=== PATIENT | female | born 1945 | race Caucasian/White ===

== ENCOUNTER 2018-06-30 03:10 | Inpatient (IN) | payer MEDICARE, BC ==
[~2018-06-30] VITALS: Ht 172.7 cm; Wt 61.3 kg
[~2018-06-30 03:10] MED LIST: DULO-31 PO; HYDR-3965 PO
[2018-06-30] MEDS ORDERED: proCHLORperazine 10 MG/2 ml inj IV ONE (04:05)
[2018-06-30 04:27] LABS: BASOPHILS % (AUTO) 0.6 % (0-1); EOSINOPHILS % (AUTO) 0.2 % (0-6); HEMATOCRIT 43.7 % (35.0-45.0); HEMOGLOBIN 14.2 g/dl (12.0-16.0); LYMPHOCYTES # (AUTO) 0.7 X10'3 (1.1-4.8); LYMPHOCYTES % (AUTO) 10.6 % (21-51); MEAN CORPUSCULAR HGB CONC 32.6 g/dL (33.0-36.5); MEAN CORPUSCULAR VOLUME 85.8 FL (78-98); MEAN PLATELET VOLUME 8.4 FL (7.4-10.4); MONOCYTES # (AUTO) 0.3 X10'3 (0-0.9); MONOCYTES % (AUTO) 4.8 % (2-12); NEUTROPHILS # (AUTO) 5.3 X10'3 (1.8-7.7); NEUTROPHILS % (AUTO) 83.8 % (42-75); PLATELET COUNT 199 X10'3 (140-440); RED BLOOD COUNT 5.09 X10'6 (4.20-5.60); RED CELL DISTRIBUTION WIDTH 14.9 % (11.5-14.5); WHITE BLOOD COUNT 6.3 X10'3 (4.5-11.0)
[2018-06-30 04:28] LABS: ALANINE AMINOTRANSFERASE 18 U/L (12-78); ALBUMIN 3.5 G/DL (3.4-5.0); ALBUMIN/GLOBULIN RATIO 0.9 (1.1-1.5); ALKALINE PHOSPHATASE 114 IU/L (46-116); ANION GAP 9 (8-16); ASPARTATE AMINO TRANSFERASE 19 U/L (10-37); BILIRUBIN,TOTAL 0.8 MG/DL (0.1-1.0); BLOOD UREA NITROGEN 20 MG/DL (7-18); BUN/CREATININE RATIO 30.3 (6.6-38.0); CHLORIDE 107 MMOL/L (99-107); CREATININE 0.66 MG/DL (0.40-0.90); GLUCOSE 96 MG/DL (70-104); POTASSIUM 3.9 MMOL/L (3.5-5.1); SODIUM 141 MMOL/L (135-145); TOTAL CARBON DIOXIDE 25.4 MMOL/L (24-32); TOTAL PROTEIN 7.3 G/DL (6.4-8.2); eGFR 89 ML/MIN
[2018-06-30 04:32] LABS: D-DIMER 0.96 MG/L FEU (0-0.50); PARTIAL THROMBOPLASTIN TIME 42 SECONDS (22-32)
[2018-06-30] MEDS ORDERED: iohexol 350MG/ML 100ml bottle IV ONE (05:33)
--- NOTE | 2018-06-30 05:40 | NUR ---
CT chest with contrast ordered d/t elevated ddimer. remains at bedside
[2018-06-30] MEDS ORDERED: [UNRECOGNIZED DRUG - CODE] (06:12)
[2018-06-30] MEDS ORDERED: HYDROcodone/acetaminophen 5mg/325mg tablet PO ONE (06:15)
--- NOTE | 2018-06-30 06:19 | NUR ---
PT AWAITING HOSPITALIST. MED REC COMOPLETED. VSS, SATS ON 2 l NC95%. , DARYN, REMAINS AT BEDSIDE. PT IS POLITE AND COOPERATIVE AND APPROPRIATE AND A&OX4.
[2018-06-30] MEDS ORDERED: furosemide 10 MG/1 ML 10ml inj IV ONE (06:55)
[2018-06-30] MEDS ORDERED: potassium Cl 40MEQ/NS 500ml 500 ML IV PRN ×2 (07:30)
[2018-06-30] MEDS ORDERED: acetaminophen 325mg tablet PO PRN (07:30)
[2018-06-30] MEDS ORDERED: potassium Cl 20 mEq SR tablet PO PRN ×2 (07:30)
[2018-06-30] MEDS ORDERED: ipratropium/albuterol 3ml nebule NEB PRN (07:30)
[2018-06-30] MEDS ORDERED: magnesium 2GM in 50ml NS 50 ML IV PRN (07:30)
[2018-06-30] MEDS ORDERED: magnesium Cl slow-release 64mg tablet PO PRN (07:30)
[2018-06-30] MEDS ORDERED: magnesium 4gm in 100ml NS 100 ML IV PRN (07:30)
[2018-06-30] MEDS ORDERED: ondansetron/PF 4mg/2ml inj IV PRN (07:30)
[2018-06-30] MEDS: K and/or MAG REPLACEMENT MC SCH (08:00)
[2018-06-30] MEDS: enoxaparin 40mg/0.4ml syringe SUBCUT SCH (08:23)
--- NOTE | 2018-06-30 08:41 | NUR ---
RECEIVED REPORT FROM SHERLY SCHULTZ. AWAITING PATIENT TO ROOM 355A.
--- NOTE | 2018-06-30 09:30 | NUR ---
RECEIVED PATIENT TO ROOM 355A VIA GURNEY ACCOMPANIED BY X1 STAFF AND SPOUSE. PATIENT IS ALERT AND ORIENTED AN IN NO APPARENT DISTRESS. SHE DENIES SOB AT THIS TIME AND EVEN WITH EXERTION. SHE WAS ABLE TO AMBULATE WITH X1 SBA TO BATHROOM AND TO BED. PATIENT ORIENTED TO ROOM AND CALL LIGHT AND CALL LIGHT PLACED WITHIN REACH. BED IS LOW AND LOCKED.
[2018-06-30 09:55] VITALS: BP 160/76
[2018-06-30 10:01] VITALS: BP 145/83
[2018-06-30 11:00] VITALS: BP 131/76
[2018-06-30] MEDS ORDERED: HYDROcodone/acetaminophen 5mg/325mg tablet PO PRN (12:10)
--- NOTE | 2018-06-30 17:33 | NUR ---
CANE FLUME CHUTE OPERATOR AT PATIENT'S BEDSIDE.
--- NOTE | 2018-06-30 18:12 | NUR ---
Patient in room [facility]. I have received report from Amie DUBOIS and had the opportunity to ask questions and assume patient care. Addendum: 06/30/18 at 1812 by Irene Graf RN Amended: Links added.
--- NOTE | 2018-06-30 18:19 | NUR ---
Problems reprioritized. Patient report given, questions answered & plan of care reviewed with SHERLY URBINA.
[2018-06-30] MEDS: HYDROcodone/acetaminophen 5mg/325mg tablet PO PRN (19:17)
--- NOTE | 2018-06-30 19:20 | NUR ---
medicated for c/o pain .
[2018-06-30 19:30] VITALS: BP 128/75
--- NOTE | 2018-06-30 20:10 | NUR ---
hs med given no s&s of distress has a heart murmur on tele 15.
[2018-06-30] MEDS: famotidine 20mg tablet PO SCH (20:16)
--- NOTE | 2018-06-30 22:00 | NUR ---
pt resting eyes closed without changes.
--- NOTE | 2018-07-01 | NUR ---
resting eyes closed no s&s of distress.
[2018-07-01 00:10] VITALS: BP 123/83
--- NOTE | 2018-07-01 02:00 | NUR ---
pt resting without changes.
--- NOTE | 2018-07-01 04:00 | NUR ---
pt resting without changes.
[2018-07-01] MEDS: HYDROcodone/acetaminophen 5mg/325mg tablet PO PRN ×4 (06:12→20:48)
--- NOTE | 2018-07-01 06:16 | NUR ---
Problems reprioritized. Patient report given, questions answered & plan of care reviewed with Roselyn Frazier. Addendum: 07/01/18 at 0616 by Irene Graf RN Amended: Links added.
[2018-07-01 06:37] LABS: BASOPHILS % (AUTO) 0.5 % (0-1); HEMATOCRIT 44.3 % (35.0-45.0); HEMOGLOBIN 14.3 g/dl (12.0-16.0); LYMPHOCYTES # (AUTO) 1.4 X10'3 (1.1-4.8); LYMPHOCYTES % (AUTO) 29.9 % (21-51); MEAN CORPUSCULAR HGB CONC 32.3 g/dL (33.0-36.5); MEAN CORPUSCULAR VOLUME 86.7 FL (78-98); MEAN PLATELET VOLUME 8.8 FL (7.4-10.4); MONOCYTES # (AUTO) 0.4 X10'3 (0-0.9); MONOCYTES % (AUTO) 8.5 % (2-12); NEUTROPHILS # (AUTO) 2.8 X10'3 (1.8-7.7); NEUTROPHILS % (AUTO) 60.1 % (42-75); PLATELET COUNT 210 X10'3 (140-440); RED BLOOD COUNT 5.11 X10'6 (4.20-5.60); RED CELL DISTRIBUTION WIDTH 14.4 % (11.5-14.5); WHITE BLOOD COUNT 4.6 X10'3 (4.5-11.0)
[2018-07-01 06:50] LABS: ANION GAP 9 (8-16); BLOOD UREA NITROGEN 16 MG/DL (7-18); BUN/CREATININE RATIO 23.9 (6.6-38.0); CHLORIDE 104 MMOL/L (99-107); CREATININE 0.67 MG/DL (0.40-0.90); GLUCOSE 91 MG/DL (70-104); POTASSIUM 3.7 MMOL/L (3.5-5.1); SODIUM 141 MMOL/L (135-145); TOTAL CARBON DIOXIDE 28.4 MMOL/L (24-32)
[2018-07-01 06:51] LABS: ALBUMIN 3.7 G/DL (3.4-5.0); CALCIUM 9.8 MG/DL (8.5-10.1); CHOL/HDL RATIO 1.8 (0.00-4.99); CHOLESTEROL 170 MG/DL (0-200); HDL CHOLESTEROL 93 MG/DL (35-60); LDL CHOLESTEROL 67 MG/DL (50-100); MAGNESIUM 2.1 MG/DL (1.5-2.4); TRIGLYCERIDES 71 MG/DL (20-135); eGFR 87 ML/MIN
[2018-07-01 07:30] VITALS: BP 144/81
[2018-07-01] MEDS: furosemide 20 MG/2 ML vial IV SCH (07:33)
[2018-07-01] MEDS: enoxaparin 40mg/0.4ml syringe SUBCUT SCH (07:34)
[2018-07-01] MEDS: K and/or MAG REPLACEMENT MC SCH (08:00)
--- NOTE | 2018-07-01 09:35 | NUR ---
Patient in room [facility]. I have received report from Shartia DUBOIS and had the opportunity to ask questions and assume patient care.
--- NOTE | 2018-07-01 09:44 | NUR ---
Gave report to Johnathan DUBOIS pt is resting on RA, in no apparent distress, call light and items of freq use within reach.
[2018-07-01 11:00] VITALS: BP 128/84
--- NOTE | 2018-07-01 14:06 | NUR ---
Paged Dr. Oneill PAGER ID: [phone] MESSAGE: Johnathan DUBOIS [phone] Zena Zacarias: 24hr tele order . Do you want to d/c or continue? Pt sinus to sinus tach (90s-100s) at rest. Thank you.
[2018-07-01 18:00] VITALS: BP 134/88
--- NOTE | 2018-07-01 18:40 | NUR ---
Paged Dr. Oneill PAGER ID: [phone] MESSAGE: Johnathan DUBOIS [phone] Zena Zacarias: ordered Stat EKG per protocol. HR 120s-130s, change from 90s-100s all day. Pt diaphoretic. No chest pain. No SOB. O2 93% RA. Regular rhythm apical auscultation. Concerned about change with new onset CHF.
--- NOTE | 2018-07-01 18:48 | NUR ---
Problems reprioritized. Patient report given, questions answered & plan of care reviewed with Irene DUBOIS.
--- NOTE | 2018-07-01 18:57 | NUR ---
Patient in room [facility]. I have received report from Johnathan Frazier and had the opportunity to ask questions and assume patient care. Addendum: 07/01/18 at 1857 by Irene Graf RN Amended: Links added.
--- NOTE | 2018-07-01 19:20 | NUR ---
bp 134/[address] Mcmahon.
--- NOTE | 2018-07-01 19:25 | NUR ---
ekg completed by BERONICA per MD order with Mai showed new onset of atrial fib. Dr Mcmahon notified and order to give the coreg 3.125 ordered for tonight now.
[2018-07-01] MEDS: famotidine 20mg tablet PO SCH (19:28)
[2018-07-01] MEDS: carVEDilol 3.125mg tablet PO SCH (19:28)
--- NOTE | 2018-07-01 20:24 | NUR ---
Problems reprioritized. Patient report given, questions answered & plan of care reviewed with Radha Frazier. Addendum: 07/01/18 at 2024 by Irene Graf RN Amended: Links added.
--- NOTE | 2018-07-01 20:25 | NUR ---
Patient in room [facility]. I have received report from Irene jeffrey and had the opportunity to ask questions and assume patient care. Addendum: 07/02/18 at 0218 by Radha Olivier RN Amended: Links added.
[2018-07-02] VITALS: BP 134/84
[2018-07-02 05:17] LABS: ALBUMIN 3.5 G/DL (3.4-5.0); ANION GAP 7 (8-16); BLOOD UREA NITROGEN 21 MG/DL (7-18); CALCIUM 9.7 MG/DL (8.5-10.1); CHLORIDE 106 MMOL/L (99-107); GLUCOSE 106 MG/DL (70-104); POTASSIUM 3.7 MMOL/L (3.5-5.1); SODIUM 142 MMOL/L (135-145); TOTAL CARBON DIOXIDE 28.8 MMOL/L (24-32); eGFR 83 ML/MIN
[2018-07-02 05:33] LABS: BASOPHILS % (AUTO) 0.8 % (0-1); EOSINOPHILS % (AUTO) 0.3 % (0-6); HEMATOCRIT 42.2 % (35.0-45.0); HEMOGLOBIN 13.9 g/dl (12.0-16.0); LYMPHOCYTES % (AUTO) 18.2 % (21-51); MEAN CORPUSCULAR HEMOGLOBIN 28.2 PG (27.0-31.0); MEAN CORPUSCULAR VOLUME 85.4 FL (78-98); MEAN PLATELET VOLUME 8.5 FL (7.4-10.4); MONOCYTES # (AUTO) 0.5 X10'3 (0-0.9); MONOCYTES % (AUTO) 8.9 % (2-12); NEUTROPHILS # (AUTO) 3.9 X10'3 (1.8-7.7); NEUTROPHILS % (AUTO) 71.8 % (42-75); PLATELET COUNT 217 X10'3 (140-440); RED BLOOD COUNT 4.94 X10'6 (4.20-5.60); RED CELL DISTRIBUTION WIDTH 14.3 % (11.5-14.5); WHITE BLOOD COUNT 5.5 X10'3 (4.5-11.0)
[2018-07-02] MEDS: HYDROcodone/acetaminophen 5mg/325mg tablet PO PRN ×2 (05:47→10:35)
--- NOTE | 2018-07-02 06:00 | NUR ---
Patient in room [facility]. I have received report from SHERLY Garcia and had the opportunity to ask questions and assume patient care.
--- NOTE | 2018-07-02 06:20 | NUR ---
Problems reprioritized. Patient report given, questions answered & plan of care reviewed with CURTIS DUBOIS. Addendum: 07/02/18 at 0620 by Radha Olivier RN Amended: Links added.
[2018-07-02 07:21] VITALS: BP 139/69
[2018-07-02] MEDS: K and/or MAG REPLACEMENT MC SCH (08:00)
[2018-07-02] MEDS: carVEDilol 3.125mg tablet PO SCH (09:21)
[2018-07-02] MEDS: furosemide 20 MG/2 ML vial IV SCH (09:21)
[2018-07-02] MEDS: enoxaparin 40mg/0.4ml syringe SUBCUT SCH (09:23)
[2018-07-02 11:30] VITALS: BP 119/81
[2018-07-02] MEDS ORDERED: FURO-150 PO (11:31)
[2018-07-02] MEDS ORDERED: COR3.125T PO (11:31)
[2018-07-02] MEDS ORDERED: LISI2.5T2 PO ×2 (14:11→14:12)
--- NOTE | 2018-07-02 15:45 | NUR ---
Patient discharged. PIV removed: cath tip intact. Education given to and patient and they verbalized understanding. Patient will follow up with Dr. Neal as soon as possible because of the results on her Echo. Patient will garbage pick up man her medications. Patient was wheeled down by staff.
== END 2018-07-02 15:36 | disposition home or self-care (01) | DRG 306 ==
LOC: ER 03:10 → SUR 3N 08:52 → CMPBEDREQ 15:55
PROVIDERS: ADMIT Internal Medicine; ATTEND Internal Medicine
PROC: B32T1ZZ Computerized Tomography (CT Scan) of Left Pulmonary Artery using Low Osmolar Contrast (ICD-10-PCS; principal; 2018-06-30)
PROC: B3201ZZ Computerized Tomography (CT Scan) of Thoracic Aorta using Low Osmolar Contrast (ICD-10-PCS; 2018-06-30)
PROC: B32S1ZZ Computerized Tomography (CT Scan) of Right Pulmonary Artery using Low Osmolar Contrast (ICD-10-PCS; 2018-06-30)
DX: I35.0 Nonrheumatic aortic (valve) stenosis (principal); I50.31 Acute diastolic (congestive) heart failure; J96.01 Acute respiratory failure with hypoxia; Z96.651 Presence of right artificial knee joint; L40.50 Arthropathic psoriasis, unspecified; Z79.899 Other long term (current) drug therapy; Z87.891 Personal history of nicotine dependence
CPT/HCPCS: 36415; 71045; 71275; 80048; 80053; 80061; 83735; 83880; 84484; 85025; 85379; 85610; 85730; 87070; 93005; 93306; 94640; 94760; 96372; 96374; 96375; 99285; G0378; J0780; J1650; J1940; Q9967

== ENCOUNTER 2018-07-12 07:11 | Day surgery (SDC) | payer MEDICARE, BC ==
[2018-07-11 07:54] LABS: BASOPHILS % (AUTO) 1.2 % (0-1); EOSINOPHILS # (AUTO) 0.1 X10'3 (0-0.9); EOSINOPHILS % (AUTO) 1.9 % (0-6); HEMATOCRIT 41.1 % (35.0-45.0); HEMOGLOBIN 13.9 g/dl (12.0-16.0); LYMPHOCYTES % (AUTO) 27.1 % (21-51); MEAN CORPUSCULAR HGB CONC 33.9 g/dL (33.0-36.5); MEAN CORPUSCULAR VOLUME 85.6 FL (78-98); MEAN PLATELET VOLUME 8.7 FL (7.4-10.4); MONOCYTES # (AUTO) 0.3 X10'3 (0-0.9); MONOCYTES % (AUTO) 8.7 % (2-12); NEUTROPHILS # (AUTO) 2.3 X10'3 (1.8-7.7); NEUTROPHILS % (AUTO) 61.1 % (42-75); PLATELET COUNT 230 X10'3 (140-440); RED CELL DISTRIBUTION WIDTH 14.1 % (11.5-14.5); WHITE BLOOD COUNT 3.8 X10'3 (4.5-11.0)
[2018-07-11 08:06] LABS: PARTIAL THROMBOPLASTIN TIME 49 SECONDS (22-32)
[2018-07-11 08:41] LABS: ALANINE AMINOTRANSFERASE 18 U/L (12-78); ALBUMIN 3.8 G/DL (3.4-5.0); ALKALINE PHOSPHATASE 103 IU/L (46-116); ANION GAP 5 (8-16); ASPARTATE AMINO TRANSFERASE 20 U/L (10-37); BILIRUBIN,TOTAL 1.2 MG/DL (0.1-1.0); BLOOD UREA NITROGEN 20 MG/DL (7-18); BUN/CREATININE RATIO 27.4 (6.6-38.0); CALCIUM 9.3 MG/DL (8.5-10.1); CHLORIDE 104 MMOL/L (99-107); CREATININE 0.73 MG/DL (0.40-0.90); GLUCOSE 94 MG/DL (70-104); POTASSIUM 3.8 MMOL/L (3.5-5.1); SODIUM 138 MMOL/L (135-145); TOTAL CARBON DIOXIDE 29.5 MMOL/L (24-32); TOTAL PROTEIN 7.8 G/DL (6.4-8.2); eGFR 79 ML/MIN
[~2018-07-12] VITALS: Ht 170.2 cm; Wt 62.9 kg
[2018-07-12] VITALS (14 sets, daily range): BP systolic 90–146; BP diastolic 46–81
[~2018-07-12 07:11] MED LIST changes: +COR3.125T PO; -DULO-31 PO; +FURO-150 PO; +LISI2.5T2 PO; +[UNRECOGNIZED DRUG - CODE]
[2018-07-12] MEDS ORDERED: nitroGLYCERIN 0.4mg SUBLingual tab SL PRN (07:25)
[2018-07-12] MEDS ORDERED: normal saline 1,000 ML IV SCH (07:25)
[2018-07-12] MEDS ORDERED: diphenhydrAMINE 25mg capsule PO PRN (07:25)
[2018-07-12] MEDS ORDERED: LORazepam 0.5 MG tablet PO PRN (07:25)
[2018-07-12] MEDS ORDERED: LISI2.5T2 PO (07:34)
[2018-07-12] MEDS ORDERED: FURO-150 PO (07:34)
[2018-07-12] MEDS ORDERED: CARV3.122 PO (07:34)
[2018-07-12] MEDS ORDERED: midazolam 2 mg/2 ml injection ONE (08:59)
[2018-07-12] MEDS ORDERED: fentaNYL/PF 50MCG/1 ML 2ML syringe ONE (08:59)
[2018-07-12] MEDS ORDERED: iohexol 350 MG/ML 50ML vial IV ONE ×2 (09:00→09:37)
[2018-07-12] MEDS ORDERED: LIDOcaine 1% (10mg/ml)w/preservative injection 20ml MDV ONE (09:00)
[2018-07-12] MEDS ORDERED: iohexol 350MG/ML 100ml bottle IV ONE (09:00)
[2018-07-12] MEDS ORDERED: OXAZEpam 15mg capsule PO PRN (10:25)
[2018-07-12] MEDS ORDERED: HYDROcodone/acetaminophen 10/325mg tab PO PRN (10:25)
[2018-07-12] MEDS ORDERED: ondansetron/PF 4mg/2ml inj IV PRN (10:25)
[2018-07-12] MEDS ORDERED: proCHLORperazine 10 MG/2 ml inj IV PRN (10:25)
[2018-07-12] MEDS ORDERED: HYDROcodone/acetaminophen 5mg/325mg tablet PO PRN (10:25)
[2018-07-12] MEDS ORDERED: sodium chloride 0.45% 1,000 ML IV SCH (10:25)
== END 2018-07-12 17:00 | disposition home or self-care (01) ==
LOC: SSTAY O 07:11
PROVIDERS: ATTEND Internal Medicine Cardiovascular Disease
DX: I35.0 Nonrheumatic aortic (valve) stenosis (principal); I50.9 Heart failure, unspecified; R06.02 Shortness of breath; L40.50 Arthropathic psoriasis, unspecified; F17.210 Nicotine dependence, cigarettes, uncomplicated
CPT/HCPCS: 36415; 71046; 80053; 85025; 85610; 85730; 93005; 93458; 93567; A6257; C1760; C1769; J1644; J2001; J2250; J3010; J7030; Q0163; Q9967; 99152; 99153; A4620

== ENCOUNTER 2020-05-06 08:54 | Emergency (ER) | payer MEDICARE, BC ==
[~2020-05-06] VITALS: Ht 167.6 cm; Wt 63.6 kg
[~2020-05-06 08:54] MED LIST changes: +CARV3.122 PO; -COR3.125T PO
[2020-05-06] MEDS ORDERED: LIDOcaine 1% w/epiNEPHrine 1:200,000 30ml vial SQ ONE (09:15)
[2020-05-06] MEDS ORDERED: LIDOcaine 1% W/epiNEPHrine 1:200,000 10ml vial SQ ONE (09:20)
[2020-05-06] MEDS ORDERED: HYDROcodone/acetaminophen 10/325mg tab PO ONE (09:35)
[2020-05-06] MEDS ORDERED: ondansetron 4mg rapidly disintigrating tab PO ONE (09:35)
[2020-05-06 11:44] VITALS: BP 131/80
--- NOTE | 2020-05-06 11:56 | NUR ---
report called to [facility] aimee yu who requested pt be covid swabbed prior to leaving; [facility] notified.
== END 2020-05-06 12:03 | disposition short-term general hospital (02) ==
LOC: ER 08:54
DX: S01.91XA Laceration without foreign body of unspecified part of head, initial encounter (principal); S42.002A Fracture of unspecified part of left clavicle, initial encounter for closed fracture; Z20.822 Contact with and (suspected) exposure to COVID-19; I60.9 Nontraumatic subarachnoid hemorrhage, unspecified; M25.512 Pain in left shoulder; M19.90 Unspecified osteoarthritis, unspecified site; Z98.890 Other specified postprocedural states; Z79.899 Other long term (current) drug therapy; X58.XXXA Exposure to other specified factors, initial encounter; Y93.89 Activity, other specified; Y92.89 Other specified places as the place of occurrence of the external cause; Y99.8 Other external cause status
CPT/HCPCS: 12011; 70450; 73030; 73560; 87635; 99285; C9803